=== PATIENT | female | born 1935 | race Caucasian/White ===

== ENCOUNTER 2018-01-23 13:00 | Inpatient (IN) ==
[2018-01-23] MEDS ORDERED: LABETALOL 20 MG/4 ML SYRINGE IV PRN (18:53)
[2018-01-23] MEDS ORDERED: NIFEdipine 10 MG CAPSULE PO PRN (19:12)
[2018-01-23] MEDS: METOPROLOL TARTRATE 50 MG TABLET PO SCH (20:46)
[2018-01-23 20:57] LABS: Risk Ratio 3.42; VLDL CHOLESTEROL 35.8 MG/DL
[2018-01-24 01:03] LABS: Basophils % 0.6 % (0.0-0.8); Eosinophils # 0.1 10*3/uL (0.0-0.87); Hematocrit 37.6 VOL% (35.7-47.0); Hemoglobin 12.4 GM/DL (12.0-16.0); Immature Granulocytes % 0.3 %; Immature Granulocytes Absolute 0.02 #; Lymphocytes % 28.4 % (21.3-54.2); Mean Corpuscular Hemoglobin 29 PG (27-34); Mean Corpuscular Volume 89.1 FL (87-102); Mean Platelet Volume 11.5 FL (9.6-12.0); Monocytes # 0.5 10*3/uL (0.11-0.8); Neutrophils # 4.4 10*3/uL (1.4-7.4); Neutrophils % 61.7 % (38.7-73.9); Platelet Count 181 T/CUMM (130-400); Red Blood Count 4.22 MC/CUMM (3.8-5.5); Red Cell Distribution Width 13.2 % (9.3-17.3); White Blood Count 7.2 T/CUMM (4-12)
[2018-01-24 01:15] LABS: Calcium 9.5 MG/DL (8.5-10.1); Osmolality,Calculated 284.1 MOS/KG (273-304); Potassium 3.6 MMOL/L (3.5-5.1)
[2018-01-24] MEDS ORDERED: ROSUVASTATIN 10 MG TABLET PO SCH ×2 (09:00→15:19)
[2018-01-24] MEDS ORDERED: ALUMINUM/MAGNES/SIMETH MAX STR 30 ML UDCUP PO PRN (09:06)
[2018-01-24] MEDS ORDERED: MAGNESIUM HYDROXIDE SUSP 30 ML UDCUP PO PRN (09:06)
[2018-01-24] MEDS ORDERED: ACETAMINOPHEN 325 MG TABLET PO PRN (09:06)
[2018-01-24] MEDS ORDERED: LORazepam 2 MG/1 ML VIAL IV ONE (09:22)
[2018-01-24] MEDS: CLOPIDOGREL 75 MG TABLET PO SCH (09:37)
[2018-01-24] MEDS: METOPROLOL TARTRATE 50 MG TABLET PO SCH ×2 (09:37→20:27)
[2018-01-25 06:40] LABS: Basophils % 0.5 % (0.0-0.8); Eosinophils # 0.2 10*3/uL (0.0-0.87); Eosinophils % 2.1 % (0.00-10.9); Hemoglobin 12.2 GM/DL (12.0-16.0); Immature Granulocytes % 0.4 %; Immature Granulocytes Absolute 0.03 #; Lymphocytes # 2.6 10*3/uL (1.4-4.0); Lymphocytes % 32.2 % (21.3-54.2); Mean Corpuscular HGB Conc 32.1 GM/DL (32-36); Mean Corpuscular Hemoglobin 29 PG (27-34); Mean Platelet Volume 11.8 FL (9.6-12.0); Monocytes # 0.6 10*3/uL (0.11-0.8); Monocytes % 6.8 % (1.7-12.7); Neutrophils # 4.7 10*3/uL (1.4-7.4); Platelet Count 191 T/CUMM (130-400); Red Blood Count 4.27 MC/CUMM (3.8-5.5); Red Cell Distribution Width 13.2 % (9.3-17.3); White Blood Count 8.1 T/CUMM (4-12)
[2018-01-25 06:58] LABS: Calcium 9.6 MG/DL (8.5-10.1); Osmolality,Calculated 289.1 MOS/KG (273-304); Potassium 3.8 MMOL/L (3.5-5.1); Thyroid Stimulating Hormone 1.11 uIU/ml (0.358-3.74)
[2018-01-25] MEDS: CLOPIDOGREL 75 MG TABLET PO SCH (09:57)
[2018-01-25] MEDS: METOPROLOL TARTRATE 50 MG TABLET PO SCH (09:57)
[2018-01-25 14:42] VITALS: BP 136/65
== END 2018-01-25 15:31 | DRG 65 ==
LOC: EDBD → EDUNIT# → N.ED 13:00 → N.EDINP 18:16 → SUPCPDRO 18:16 → SUATTDRO 18:16 → N.4E 19:08
PROVIDERS: ADMIT Internal Medicine; ATTEND Internal Medicine